=== PATIENT | female | born 1935 | race Caucasian/White ===

== ENCOUNTER 2022-06-05 12:03 | Emergency (ER) | payer MEDICARE, OTHER ==
[~2022-06-05] VITALS: Ht 172.7 cm; Wt 68.0 kg
[~2022-06-05 12:03] MED LIST: ASPI81TA96 PO; ESZO2TAB31 PO; HYDR-4383 PO; LISI20TA28 PO; MIRT-116 PO; MULT-1085 PO; VIT1CAPS46 PO
[2022-06-05 13:41] VITALS: BP 129/58
[2022-06-05 14:43] LABS: BASOPHILS % (AUTO) 0.4 % (0-1); EOSINOPHILS # (AUTO) 0.1 X10'3 (0-0.9); EOSINOPHILS % (AUTO) 0.8 % (0-6); HEMATOCRIT 35.4 % (35.0-45.0); HEMOGLOBIN 11.7 g/dl (12.0-16.0); LYMPHOCYTES # (AUTO) 1.2 X10'3 (1.1-4.8); LYMPHOCYTES % (AUTO) 10.8 % (21-51); MEAN CORPUSCULAR HEMOGLOBIN 29.7 PG (27.0-31.0); MEAN CORPUSCULAR HGB CONC 33.2 g/dL (33.0-36.5); MEAN CORPUSCULAR VOLUME 89.5 FL (78-98); MONOCYTES % (AUTO) 8.4 % (2-12); NEUTROPHILS % (AUTO) 79.6 % (42-75); PLATELET COUNT 240 X10'3 (140-440); RED BLOOD COUNT 3.95 X10'6 (4.20-5.60); WHITE BLOOD COUNT 11.4 X10'3 (4.5-11.0)
[2022-06-05 15:04] LABS: ALANINE AMINOTRANSFERASE 19 U/L (12-78); ALBUMIN 2.9 G/DL (3.4-5.0); ALBUMIN/GLOBULIN RATIO 0.8 (1.1-1.5); ALKALINE PHOSPHATASE 62 IU/L (46-116); ANION GAP 6 (8-16); ASPARTATE AMINO TRANSFERASE 29 U/L (10-37); BILIRUBIN,TOTAL 0.4 MG/DL (0.1-1.0); BLOOD UREA NITROGEN 16 MG/DL (7-18); BUN/CREATININE RATIO 18.2 (6.6-38.0); CALCIUM 8.2 MG/DL (8.5-10.1); CHLORIDE 105 MMOL/L (99-107); CREATININE 0.88 MG/DL (0.40-0.90); GLUCOSE 94 MG/DL (70-104); SODIUM 139 MMOL/L (135-145); TOTAL CARBON DIOXIDE 27.6 MMOL/L (24-32); TOTAL PROTEIN 6.5 G/DL (6.4-8.2); eGFR 61 ML/MIN
[2022-06-05 15:41] LABS: CLARITY,URINE CLOUDY (Clear); COLOR,URINE YELLOW (Yellow); GLUCOSE, URINE NEGATIVE (Neg); KETONES,URINE TRACE mg/dl (Neg); LEUKOCYTE ESTERASE ,URINE NEGATIVE (Neg); NITRITES, URINE NEGATIVE (Neg); OCCULT BLOOD,URINE TRACE-INTACT (Neg); PROTEIN,URINE 30 mg/dl (Neg); UROBILINOGEN,URINE 0.2 E.U/dL (0.2-1.0)
[2022-06-05 16:12] LABS: UA COLLECTION TYPE STRAIGHT CATH
[2022-06-05 16:13] LABS: MUCUS STRANDS MANY /LPF (Neg); RBC,URINE 0-2 /HPF (0-2); SQUAMOUS EPITHELIAL CELL,UR FEW /LPF (FEW); WBC,URINE 0-4 /HPF (0-4)
[2022-06-05 16:14] LABS: BACTERIA,URINE FEW /HPF (Neg)
== END 2022-06-05 17:45 | disposition home or self-care (01) ==
LOC: ER 12:04
DX: R53.1 Weakness (principal); E86.0 Dehydration; Z87.81 Personal history of (healed) traumatic fracture; Z79.82 Long term (current) use of aspirin; Z79.899 Other long term (current) drug therapy
CPT/HCPCS: 36415; 70450; 80053; 81001; 82948; 83880; 84484; 85025; 93005; 99285; A4353

== ENCOUNTER 2022-11-13 16:04 | Inpatient (IN) | payer MEDICARE, OTHER ==
[~2022-11-13] VITALS: Ht 172.7 cm; Wt 63.6 kg
[2022-11-13 17:00] LABS: BASOPHILS % (AUTO) 0.4 % (0-1); EOSINOPHILS % (AUTO) 0.2 % (0-6); HEMATOCRIT 33.8 % (35.0-45.0); HEMOGLOBIN 11.4 g/dl (12.0-16.0); LYMPHOCYTES # (AUTO) 0.3 X10'3 (1.1-4.8); LYMPHOCYTES % (AUTO) 2.8 % (21-51); MEAN CORPUSCULAR HEMOGLOBIN 30.2 PG (27.0-31.0); MEAN CORPUSCULAR HGB CONC 33.8 g/dL (33.0-36.5); MEAN CORPUSCULAR VOLUME 89.3 FL (78-98); MEAN PLATELET VOLUME 7.1 FL (7.4-10.4); MONOCYTES # (AUTO) 0.7 X10'3 (0-0.9); MONOCYTES % (AUTO) 6.3 % (2-12); NEUTROPHILS # (AUTO) 10.1 X10'3 (1.8-7.7); NEUTROPHILS % (AUTO) 90.3 % (42-75); PLATELET COUNT 239 X10'3 (140-440); RED BLOOD COUNT 3.79 X10'6 (4.20-5.60); RED CELL DISTRIBUTION WIDTH 13.6 % (11.5-14.5); WHITE BLOOD COUNT 11.2 X10'3 (4.5-11.0)
[2022-11-13 17:12] LABS: ALANINE AMINOTRANSFERASE 29 U/L (12-78); ALBUMIN 2.8 G/DL (3.4-5.0); ALBUMIN/GLOBULIN RATIO 0.8 (1.1-1.5); ALKALINE PHOSPHATASE 65 IU/L (46-116); ANION GAP 10 (8-16); ASPARTATE AMINO TRANSFERASE 36 U/L (10-37); BILIRUBIN,TOTAL 0.6 MG/DL (0.1-1.0); BLOOD UREA NITROGEN 22 MG/DL (7-18); BUN/CREATININE RATIO 26.8 (6.6-38.0); CALCIUM 8.2 MG/DL (8.5-10.1); CHLORIDE 106 MMOL/L (99-107); CREATINE KINASE 360 U/L (26-192); CREATININE 0.82 MG/DL (0.40-0.90); GLUCOSE 121 MG/DL (70-104); POTASSIUM 3.7 MMOL/L (3.5-5.1); SODIUM 142 MMOL/L (135-145); TOTAL PROTEIN 6.5 G/DL (6.4-8.2); eGFR 66 ML/MIN
[2022-11-13] MEDS ORDERED: normal saline 1000ML IV soln IVB ONE (17:15)
[2022-11-13 19:22] LABS: CLARITY,URINE SLIGHTLY CLOUDY (Clear); COLOR,URINE YELLOW (Yellow); PH,URINE 5.5 (4.8-8.0); PROTEIN,URINE TRACE mg/dl (Neg); UA COLLECTION TYPE CLN CATCH MIDSTREAM
[2022-11-13 19:23] LABS: GLUCOSE, URINE NEGATIVE (Neg); KETONES,URINE TRACE mg/dl (Neg); NITRITES, URINE POSITIVE (Neg); OCCULT BLOOD,URINE MODERATE (Neg)
[2022-11-13 19:24] LABS: LEUKOCYTE ESTERASE ,URINE MODERATE (Neg); UROBILINOGEN,URINE 0.2 E.U/dL (0.2-1.0)
[2022-11-13 19:26] LABS: BACTERIA,URINE 4+ /HPF (Neg); WBC,URINE 30-50 /HPF (0-4)
[2022-11-13 19:27] LABS: MUCUS STRANDS FEW /LPF (Neg); SQUAMOUS EPITHELIAL CELL,UR FEW /LPF (FEW); TRANSITIONAL EPI CELLS,URINE FEW /HPF; WBC CLUMPS,URINE FEW /HPF (NEGATIVE); YEAST FEW /HPF (NEGATIVE)
--- NOTE | 2022-11-13 20:02 | NUR ---
SPOKE WITH PTS SON, ELIZABETH. HE IS SUGGESTING A SOCIAL SERVICE CONSULT D/T THE PTS DECLINING ABILITY TO PERFORM ADLS AT HOME.
[2022-11-13] MEDS ORDERED: bisacodyl 10mg suppository rectal RC PRN (20:10)
[2022-11-13] MEDS ORDERED: diphenhydrAMINE 50 mg/ml inj IV PRN (20:10)
[2022-11-13] MEDS ORDERED: HYDROcodone/acetaminophen 5mg/325mg tablet PO PRN (20:10)
[2022-11-13] MEDS ORDERED: magnesium hydroxide 30ml (MOM) UD suspension PO PRN (20:10)
[2022-11-13] MEDS ORDERED: acetaminophen 325mg tablet PO PRN ×2 (20:10)
[2022-11-13] MEDS ORDERED: ondansetron 4mg rapidly disintigrating tab PO PRN (20:10)
[2022-11-13] MEDS ORDERED: morphine 2 MG/ML inj. syringe IV PRN (20:10)
[2022-11-13] MEDS ORDERED: diphenhydrAMINE 25mg capsule PO PRN (20:10)
[2022-11-13] MEDS ORDERED: ondansetron/PF 4mg/2ml inj IV PRN (20:10)
[2022-11-13] MEDS ORDERED: mag hydrox/Alum hydrox/simeth 30ml oral suspension PO PRN (20:10)
[2022-11-13] MEDS ORDERED: temazepam 15mg capsule PO PRN (21:00)
[2022-11-13] MEDS: normal saline 1000ml 1,000 ML IV SCH (21:03)
[2022-11-13 21:04] LABS: APTT 26 SECONDS (22-32); D-DIMER 4.16 MG/L FEU (0-0.50)
[2022-11-13 21:08] LABS: HEMOGLOBIN A1C 5.4 % (4.5-6.2)
[2022-11-13 21:14] LABS: PHOSPHORUS 3.2 MG/DL (2.3-4.5)
--- NOTE | 2022-11-13 21:18 | NUR ---
This nurse agrees with Odalys CARTERN assessment
[2022-11-13] MEDS ORDERED: BUPR-317 PO (23:13)
[2022-11-13] MEDS ORDERED: NITR0.4T51 SL (23:13)
[2022-11-13] MEDS ORDERED: ATOR10TA70 PO (23:13)
[2022-11-14 01:00] VITALS: BP 122/69
--- NOTE | 2022-11-14 04:23 | NUR ---
PT WITH NUMEROUS BRUISING, & ABRASIONS TO LOWER & UPPER EXTREMITIES
[2022-11-14] MEDS: normal saline 1000ml 1,000 ML IV SCH ×3 (05:50→22:01)
--- NOTE | 2022-11-14 06:35 | NUR ---
Problems reprioritized. Patient report given, questions answered & plan of care reviewed with Thais. Addendum: 11/14/22 at 0636 by Jurgen Nolan RN Amended: Links added.
[2022-11-14 06:42] LABS: BASOPHILS % (AUTO) 0.7 % (0-1); EOSINOPHILS # (AUTO) 0.2 X10'3 (0-0.9); EOSINOPHILS % (AUTO) 3.6 % (0-6); HEMATOCRIT 27.6 % (35.0-45.0); HEMOGLOBIN 9.2 g/dl (12.0-16.0); LYMPHOCYTES # (AUTO) 0.5 X10'3 (1.1-4.8); LYMPHOCYTES % (AUTO) 9.1 % (21-51); MEAN CORPUSCULAR HEMOGLOBIN 30.4 PG (27.0-31.0); MEAN CORPUSCULAR HGB CONC 33.4 g/dL (33.0-36.5); MEAN CORPUSCULAR VOLUME 90.9 FL (78-98); MEAN PLATELET VOLUME 7.4 FL (7.4-10.4); MONOCYTES # (AUTO) 0.5 X10'3 (0-0.9); NEUTROPHILS # (AUTO) 4.6 X10'3 (1.8-7.7); NEUTROPHILS % (AUTO) 77.6 % (42-75); PLATELET COUNT 185 X10'3 (140-440); RED BLOOD COUNT 3.04 X10'6 (4.20-5.60); RED CELL DISTRIBUTION WIDTH 13.9 % (11.5-14.5)
[2022-11-14 07:20] VITALS: BP 139/58
[2022-11-14] MEDS: docusate sod 100mg capsule PO SCH ×2 (07:27→20:14)
[2022-11-14] MEDS: aspirin 81mg tab.chew PO SCH (07:27)
[2022-11-14] MEDS: atorvastatin 10mg tablet PO SCH (07:27)
[2022-11-14] MEDS: lisinopril 20mg tablet PO SCH (07:28)
[2022-11-14] MEDS: buPROPion SR 150mg tablet PO SCH (07:28)
[2022-11-14] MEDS: heparin, porcine 5000 units/ml vial SQ SCH ×2 (07:28→20:16)
[2022-11-14] MEDS: pantoprazole 40mg Tablet.DR PO SCH (07:28)
[2022-11-14] MEDS: CefTRIAXone/D5W-Rocephin 1gm 50 ML IV SCH (07:29)
[2022-11-14 08:08] LABS: ALBUMIN 2.2 G/DL (3.4-5.0); ALBUMIN/GLOBULIN RATIO 0.8 (1.1-1.5); ALKALINE PHOSPHATASE 52 IU/L (46-116); ANION GAP 6 (8-16); ASPARTATE AMINO TRANSFERASE 36 U/L (10-37); BILIRUBIN,TOTAL 0.5 MG/DL (0.1-1.0); BLOOD UREA NITROGEN 21 MG/DL (7-18); BUN/CREATININE RATIO 26.9 (6.6-38.0); CALCIUM 7.3 MG/DL (8.5-10.1); CHLORIDE 112 MMOL/L (99-107); CHOL/HDL RATIO 1.7 (0.00-4.99); CHOLESTEROL 108 MG/DL (0-200); CREATININE 0.78 MG/DL (0.40-0.90); GLUCOSE 80 MG/DL (70-104); HDL CHOLESTEROL 64 MG/DL (35-60); LDL CHOLESTEROL 33 MG/DL (50-100); SODIUM 144 MMOL/L (135-145); TOTAL PROTEIN 4.9 G/DL (6.4-8.2); TRIGLYCERIDES 74 MG/DL (20-135); eGFR 70 ML/MIN
[2022-11-14 08:20] LABS: ALANINE AMINOTRANSFERASE 23 U/L (12-78)
--- NOTE | 2022-11-14 08:25 | NUR ---
PAGER ID: [phone] MESSAGE: [id number] Erick CONWAY: critical K 3.0, no protocol ordered. thank you! [email or web address] [id number]
[2022-11-14] MEDS ORDERED: magnesium 4gm in 100ml NS 100 ML IV PRN (08:40)
[2022-11-14] MEDS ORDERED: potassium Cl 20 mEq SR tablet PO PRN ×2 (08:40)
[2022-11-14] MEDS ORDERED: magnesium Cl slow-release 64mg tablet PO PRN (08:40)
[2022-11-14] MEDS ORDERED: iohexol 350MG/ML 100ml bottle IV ONE (10:26)
[2022-11-14 10:45] LABS: CREATINE KINASE 270 U/L (26-192)
[2022-11-14 11:00] VITALS: BP 134/44
[2022-11-14] MEDS: potassium Cl 40MEQ/1/2NS 520ml 520 ML IV PRN ×2 (13:49→22:06)
[2022-11-14 18:00] VITALS: BP 132/57
--- NOTE | 2022-11-14 18:10 | NUR ---
Problems reprioritized. Patient report given, questions answered & plan of care reviewed with RITU Alfred.
[2022-11-14] MEDS: K and/or MAG REPLACEMENT MC SCH (19:38)
[2022-11-14] MEDS: mirtazapine 15mg tablet PO SCH (20:13)
[2022-11-14 22:00] VITALS: BP 125/47
[2022-11-15 06:00] VITALS: BP 138/57
[2022-11-15 06:33] LABS: BASOPHILS % (AUTO) 0.6 % (0-1); EOSINOPHILS # (AUTO) 0.4 X10'3 (0-0.9); EOSINOPHILS % (AUTO) 5.4 % (0-6); HEMATOCRIT 32.1 % (35.0-45.0); HEMOGLOBIN 10.7 g/dl (12.0-16.0); LYMPHOCYTES % (AUTO) 14.6 % (21-51); MEAN CORPUSCULAR HEMOGLOBIN 30.6 PG (27.0-31.0); MEAN CORPUSCULAR HGB CONC 33.3 g/dL (33.0-36.5); MEAN CORPUSCULAR VOLUME 91.8 FL (78-98); MEAN PLATELET VOLUME 7.4 FL (7.4-10.4); MONOCYTES # (AUTO) 0.6 X10'3 (0-0.9); MONOCYTES % (AUTO) 9.8 % (2-12); NEUTROPHILS # (AUTO) 4.6 X10'3 (1.8-7.7); NEUTROPHILS % (AUTO) 69.6 % (42-75); PLATELET COUNT 187 X10'3 (140-440); WHITE BLOOD COUNT 6.6 X10'3 (4.5-11.0)
--- NOTE | 2022-11-15 06:38 | NUR ---
Problems reprioritized. Patient report given, questions answered & plan of care reviewed with RITU MCFARLAND.
[2022-11-15 06:39] LABS: ALANINE AMINOTRANSFERASE 23 U/L (12-78); ALBUMIN 2.4 G/DL (3.4-5.0); ALBUMIN/GLOBULIN RATIO 0.8 (1.1-1.5); ALKALINE PHOSPHATASE 57 IU/L (46-116); ANION GAP 6 (8-16); ASPARTATE AMINO TRANSFERASE 35 U/L (10-37); BILIRUBIN,TOTAL 0.4 MG/DL (0.1-1.0); BLOOD UREA NITROGEN 14 MG/DL (7-18); BUN/CREATININE RATIO 18.7 (6.6-38.0); CALCIUM 7.5 MG/DL (8.5-10.1); CHLORIDE 109 MMOL/L (99-107); CREATINE KINASE 145 U/L (26-192); CREATININE 0.75 MG/DL (0.40-0.90); GLUCOSE 78 MG/DL (70-104); MAGNESIUM 1.9 MG/DL (1.5-2.4); POTASSIUM 3.8 MMOL/L (3.5-5.1); SODIUM 139 MMOL/L (135-145); TOTAL CARBON DIOXIDE 24.5 MMOL/L (24-32); TOTAL PROTEIN 5.5 G/DL (6.4-8.2); eGFR 73 ML/MIN
[2022-11-15 07:04] LABS: % IRON SATURATION 15 % (11-46); IRON 28 UG/DL (49-151); TOTAL IRON BINDING CAPACITY 190 UG/DL (259-388)
--- NOTE | 2022-11-15 07:07 | NUR ---
Patient in room [facility]. I have received report from RITU Alfred and had the opportunity to ask questions and assume patient care.
[2022-11-15] MEDS: CefTRIAXone/D5W-Rocephin 1gm 50 ML IV SCH (07:22)
[2022-11-15] MEDS: K and/or MAG REPLACEMENT MC SCH ×2 (08:00→20:00)
[2022-11-15] MEDS: pantoprazole 40mg Tablet.DR PO SCH (09:56)
[2022-11-15] MEDS: buPROPion SR 150mg tablet PO SCH (09:56)
[2022-11-15] MEDS: atorvastatin 10mg tablet PO SCH (09:56)
[2022-11-15] MEDS: docusate sod 100mg capsule PO SCH ×2 (09:56→20:48)
[2022-11-15] MEDS: aspirin 81mg tab.chew PO SCH (09:57)
[2022-11-15] MEDS: heparin, porcine 5000 units/ml vial SQ SCH ×2 (09:57→20:48)
[2022-11-15 10:00] VITALS: BP 133/54
[2022-11-15] MEDS: lisinopril 20mg tablet PO SCH (10:05)
[2022-11-15] MEDS: normal saline 1000ml 1,000 ML IV SCH ×2 (12:57→22:00)
[2022-11-15 18:00] VITALS: BP 109/44
--- NOTE | 2022-11-15 18:25 | NUR ---
Patient in room [facility]. I have received report from RITU Barkley and had the opportunity to ask questions and assume patient care.
--- NOTE | 2022-11-15 18:48 | NUR ---
Problems reprioritized. Patient report given, questions answered & plan of care reviewed with RITU Roth.
[2022-11-15] MEDS ORDERED: iron sucrose complex injection 300 MG in normal saline 250ml IV soln 250 ML IV ONE (19:30)
[2022-11-15] MEDS: mirtazapine 15mg tablet PO SCH (20:48)
[2022-11-15 22:00] VITALS: BP 121/65
[2022-11-16 06:00] VITALS: BP 154/78
[2022-11-16 06:17] LABS: BASOPHILS % (AUTO) 0.5 % (0-1); EOSINOPHILS # (AUTO) 0.1 X10'3 (0-0.9); EOSINOPHILS % (AUTO) 1.7 % (0-6); HEMATOCRIT 32.6 % (35.0-45.0); HEMOGLOBIN 10.9 g/dl (12.0-16.0); LYMPHOCYTES # (AUTO) 0.8 X10'3 (1.1-4.8); LYMPHOCYTES % (AUTO) 9.4 % (21-51); MEAN CORPUSCULAR HGB CONC 33.3 g/dL (33.0-36.5); MEAN CORPUSCULAR VOLUME 90.2 FL (78-98); MEAN PLATELET VOLUME 7.9 FL (7.4-10.4); MONOCYTES # (AUTO) 0.7 X10'3 (0-0.9); MONOCYTES % (AUTO) 8.1 % (2-12); NEUTROPHILS # (AUTO) 6.5 X10'3 (1.8-7.7); NEUTROPHILS % (AUTO) 80.3 % (42-75); PLATELET COUNT 207 X10'3 (140-440); RED BLOOD COUNT 3.61 X10'6 (4.20-5.60); RED CELL DISTRIBUTION WIDTH 13.6 % (11.5-14.5); WHITE BLOOD COUNT 8.1 X10'3 (4.5-11.0)
--- NOTE | 2022-11-16 06:37 | NUR ---
Problems reprioritized. Patient report given, questions answered & plan of care reviewed with RITU Perkins.
[2022-11-16 06:54] LABS: ALANINE AMINOTRANSFERASE 26 U/L (12-78); ALBUMIN 2.3 G/DL (3.4-5.0); ALBUMIN/GLOBULIN RATIO 0.7 (1.1-1.5); ALKALINE PHOSPHATASE 54 IU/L (46-116); ANION GAP 9 (8-16); ASPARTATE AMINO TRANSFERASE 25 U/L (10-37); BILIRUBIN,TOTAL 0.4 MG/DL (0.1-1.0); BLOOD UREA NITROGEN 8 MG/DL (7-18); BUN/CREATININE RATIO 11.9 (6.6-38.0); CALCIUM 7.3 MG/DL (8.5-10.1); CHLORIDE 108 MMOL/L (99-107); CREATININE 0.67 MG/DL (0.40-0.90); GLUCOSE 96 MG/DL (70-104); MAGNESIUM 1.7 MG/DL (1.5-2.4); POTASSIUM 3.6 MMOL/L (3.5-5.1); SODIUM 139 MMOL/L (135-145); TOTAL CARBON DIOXIDE 21.8 MMOL/L (24-32); TOTAL PROTEIN 5.4 G/DL (6.4-8.2); eGFR 83 ML/MIN
--- NOTE | 2022-11-16 06:56 | NUR ---
Patient in room [facility]. I have received report from Ira and had the opportunity to ask questions and assume patient care.
[2022-11-16] MEDS: K and/or MAG REPLACEMENT MC SCH (08:00)
[2022-11-16] MEDS: normal saline 1000ml 1,000 ML IV SCH (08:10)
[2022-11-16] MEDS: CefTRIAXone/D5W-Rocephin 1gm 50 ML IV SCH (08:43)
[2022-11-16] MEDS: pantoprazole 40mg Tablet.DR PO SCH (08:45)
[2022-11-16] MEDS: atorvastatin 10mg tablet PO SCH (08:46)
[2022-11-16] MEDS: aspirin 81mg tab.chew PO SCH (08:46)
[2022-11-16] MEDS: docusate sod 100mg capsule PO SCH (08:46)
[2022-11-16] MEDS: buPROPion SR 150mg tablet PO SCH (08:46)
[2022-11-16] MEDS: heparin, porcine 5000 units/ml vial SQ SCH (08:50)
[2022-11-16] MEDS: lisinopril 20mg tablet PO SCH (08:50)
[2022-11-16 10:00] VITALS: BP 126/61
[2022-11-16] MEDS ORDERED: CEPH500C2 PO (10:00)
--- NOTE | 2022-11-16 12:00 | NUR ---
Pt's son was at bedside visiting. He will be taking the patient's medications that were stored in the pharmacy, over to [facility] when patient is discharged this afternoon.
--- NOTE | 2022-11-16 12:57 | NUR ---
Problems reprioritized. Patient report given, questions answered & plan of care reviewed with Jo-Ann at [facility].
== END 2022-11-16 13:21 | DRG 564 ==
LOC: ER 16:05 → ED HOLD 20:15 → SUR 3N 23:15
PROVIDERS: ADMIT Family Medicine; ATTEND Family Medicine
PROC: B32T1ZZ Computerized Tomography (CT Scan) of Left Pulmonary Artery using Low Osmolar Contrast (ICD-10-PCS; principal; 2022-11-14)
PROC: B3201ZZ Computerized Tomography (CT Scan) of Thoracic Aorta using Low Osmolar Contrast (ICD-10-PCS; 2022-11-14)
PROC: B32S1ZZ Computerized Tomography (CT Scan) of Right Pulmonary Artery using Low Osmolar Contrast (ICD-10-PCS; 2022-11-14)
DX: T79.6XXA Traumatic ischemia of muscle, initial encounter (principal); I21.A1 Myocardial infarction type 2; I13.0 Hypertensive heart and chronic kidney disease with heart failure and stage 1 through stage 4 chronic kidney disease, or unspecified chronic kidney disease; N39.0 Urinary tract infection, site not specified; N17.9 Acute kidney failure, unspecified; I50.32 Chronic diastolic (congestive) heart failure; Z20.822 Contact with and (suspected) exposure to COVID-19; B96.20 Unspecified Escherichia coli [E. coli] as the cause of diseases classified elsewhere; E86.0 Dehydration; E88.09 Other disorders of plasma-protein metabolism, not elsewhere classified; F32.A Depression, unspecified; M25.569 Pain in unspecified knee; M54.9 Dorsalgia, unspecified; R26.9 Unspecified abnormalities of gait and mobility; W18.39XA Other fall on same level, initial encounter; G89.4 Chronic pain syndrome; E87.6 Hypokalemia; Z96.643 Presence of artificial hip joint, bilateral; D63.8 Anemia in other chronic diseases classified elsewhere; I08.1 Rheumatic disorders of both mitral and tricuspid valves; D50.9 Iron deficiency anemia, unspecified; I25.10 Atherosclerotic heart disease of native coronary artery without angina pectoris; N18.9 Chronic kidney disease, unspecified; R29.6 Repeated falls; R32 Unspecified urinary incontinence; Z74.01 Bed confinement status; Z82.49 Family history of ischemic heart disease and other diseases of the circulatory system; Z85.3 Personal history of malignant neoplasm of breast; Z87.440 Personal history of urinary (tract) infections; Z90.11 Acquired absence of right breast and nipple; Y93.89 Activity, other specified; Y92.098 Other place in other non-institutional residence as the place of occurrence of the external cause; Y99.8 Other external cause status; Z79.899 Other long term (current) drug therapy; Z79.82 Long term (current) use of aspirin
CPT/HCPCS: 36415; 71045; 71275; 74176; 80053; 80061; 81001; 82550; 83036; 83540; 83550; 83605; 83735; 83880; 84100; 84443; 84484; 85025; 85379; 85610; 85730; 87040; 87077; 87081; 87088; 87186; 87635; 87811; 92508; 92616; 93306; 93970; 97116; 97161; 97530; 99285; A6212; A6213; A6223; A6250; G0378; J0696; J1644; J1756; J3480; J3490; J7030; J7050; Q9967